=== PATIENT | female | born 1980 | race Caucasian/White ===

== ENCOUNTER 2016-06-11 02:47 | Emergency (ER) | payer SELFPAY ==
[~2016-06-11 02:47] MED LIST: CIPRO500 MG PO; COLACE-DPS100 MG PO; DERMOPLAST SPRA56 GM TP; HYDROCODON-ACE1 EAC4 PO; LANSINOH TP; MOTRIN-DPS800 MG PO; PRENATAL VIT1 TAB PO; TYLENOL #3 DPS1 TAB PO; TYLENOL325 MG PO
== END 2016-06-11 04:20 | disposition home or self-care (01) ==
DX: K29.00 Acute gastritis without bleeding (principal); Z87.442 Personal history of urinary calculi; Z98.890 Other specified postprocedural states